=== PATIENT | female | born 1970 | race Caucasian/White ===

== ENCOUNTER → 2017-02-19 | Outpatient (CLI) | payer OTHER ==
[~2017-02-19] MED LIST: COLACE100 MG PO; CRESTOR10 MG PO; IBUPROFEN 200200 M1 PO; METAMUCIL1 EAC1 PO; PERCOCET PO; XANAX 0.5 MG0.5 MG PO; XARELTO10 MG PO; ZOLOFT50 MG PO; ZYRTEC10 M5 PO
== END ==
LOC: M.ULTRA 10:10
DX: N63.10 Unspecified lump in the right breast, unspecified quadrant (principal); N63.20 Unspecified lump in the left breast, unspecified quadrant

== ENCOUNTER → 2017-03-18 | Outpatient (CLI) | payer OTHER | LOC: M.MRI 11:30 | DX: N63.20 Unspecified lump in the left breast, unspecified quadrant (principal); N63.10 Unspecified lump in the right breast, unspecified quadrant ==

== ENCOUNTER → 2017-08-11 | Outpatient (CLI) | payer OTHER | LOC: M.RAD 16:36 | DX: M25.551 Pain in right hip (principal); M85.60 Other cyst of bone, unspecified site ==

== ENCOUNTER → 2017-09-07 | Outpatient (CLI) | payer OTHER | END | disposition home or self-care (01) | LOC: M.RAD 08-27 09:03 | DX: M25.551 Pain in right hip (principal); Z98.890 Other specified postprocedural states; Z90.710 Acquired absence of both cervix and uterus ==

== ENCOUNTER 2017-12-01 08:19 | Inpatient (IN) | payer OTHER ==
[2017-11-26 09:16] LABS: URINE BILIRUBIN NEGATIVE (Negative); URINE BLOOD 2+ (Negative); URINE CLARITY CLEAR; URINE COLOR YELLOW; URINE GLUCOSE-RANDOM NEGATIVE (Negative); URINE KETONES NEGATIVE (Negative); URINE LEUKOCYTES-REFLEX NEGATIVE (Negative); URINE NITRITE-REFLEX NEGATIVE (Negative); URINE PROTEIN NEGATIVE (Negative); URINE SPECIFIC GRAVITY <= 1.005 (1.005-1.030); URINE UROBILINOGEN 0.2 E.U./dl (0.2-1.0)
[2017-11-26 09:17] LABS: HEMATOCRIT 44.1 % (37.0-47.0); HEMOGLOBIN 14.9 gm/dL (12.0-15.0); MCH 31.8 pg (26.0-34.0); MCHC 33.8 g/dL (28.0-37.0); MPV 7.5 fl. (7.2-11.1); RBC 4.69 mil/uL (4.20-5.00); RDW-CV 13.3 % (10.5-14.5); WBC 10.3 thou/uL (4.0-11.0)
[2017-11-26 09:26] LABS: INR 0.9; PROTIME 9.6 Seconds (9.20-11.50)
[2017-11-26 09:27] LABS: BACTERIA-REFLEX 1-9 Few /HPF (None Seen); CASTS None Seen /LPF (None Seen); CRYSTALS None Seen /LPF (None Seen); MUCUS 0-3 Light strn/LPF (None Seen); SQUAMOUS 4-10 Moderate /LPF (0-3); URINE RBC 3-10 Few /HPF (0-2); URINE WBC-REFLEX 0-5 Rare /HPF (0-5)
[2017-11-26 09:53] LABS: CALCIUM 9.1 mg/dL (8.5-10.1); CREATININE 0.9 mg/dL (0.6-1.3); POTASSIUM 3.3 mmol/L (3.5-5.1); TOTAL BILIRUBIN 0.4 mg/dL (<0.1-1.0); TOTAL PROTEIN 7.7 g/dL (6.4-8.2)
[~2017-12-01] VITALS: Ht 170.2 cm; Wt 86.2 kg
[~2017-12-01 08:19] MED LIST changes: -COLACE100 MG PO; -METAMUCIL1 EAC1 PO; -PERCOCET PO; -XARELTO10 MG PO
[2017-12-01 10:35] VITALS: BP 129/71
[2017-12-01 17:37] VITALS: BP 110/70
--- NOTE | 2017-12-01 17:58 | NUR ---
PT ADMITTED TO UNIT AFTER RIGHT HIP REPLACEMENT. PT IS WBAT. HEMOVAC TO RIGHT HIP. INCISION TO RIGHT HIP IS COVERED WITH MEPILEX AND ICE PACKS FOR PAIN AND SWELLING. DEE HOSE AND SCD ON BILATERALLY. PT IS ON 2 LITERS 02 AND 24 HR CONTINUOS SPO2. PT HAS A LEFT FOREARM IV AND RIGHT FOREARM IV. RT FOREARM IV HAS 1/2 NS AT 75ML/HR. PT HAS 2+ PULSES. DIMINISHED LUNG SOUNDS. PT C/O PAIN 8/10. PT HAS RECEIVED FENTANYL, DILAUDID, OXY IR, AND HYDROCODONE. PT STILL C/O PAIN 8/10 WITH LITTLE RELIEF FROM MEDS. PT HAS BEEN TAUGHT RELAXATION TECHNIQUES TO CONTROL PAIN, WELL REPOSOTIONING. CALL LIGHT IN REACH. BED ALARM ON. WILL CONTINUE TO MONITOR. CALL LIGHT IS BROKEN, MAINTENANCE CALLED AND PT WILL BE MOVING ROOMS.
--- NOTE | 2017-12-01 18:19 | NUR ---
PT REMAINED ALERT AND ORIENTED. PT MOVED TO ROOM 106 DUE TO CALL LIGHT NOT WORKING AND MAINTENANCE SUGGESTION. PT C/O PAIN WITH LITTLE RELEIF FROM PAIN MEDS. HYDROCODONE AND OXY IR GIVEN FOR PAIN ON THIS FLOOR. PT DENIES ANY FURTHER NEEDS AT THIS TIME. CALL LIGHT IN REACH. BED ALARM ON. WILL CONTINUE TO MONITOR.
[2017-12-01 20:00] VITALS: BP 106/56
[2017-12-02] VITALS (8 sets, daily range): BP systolic 100–133; BP diastolic 52–68
[2017-12-02 04:02] LABS: HEMATOCRIT 36.7 % (37.0-47.0); HEMOGLOBIN 12.1 gm/dL (12.0-15.0); MCHC 33.1 g/dL (28.0-37.0); MCV 93.5 fL (80.0-100.0); MPV 7.8 fl. (7.2-11.1); RBC 3.92 mil/uL (4.20-5.00); RDW-CV 13.6 % (10.5-14.5); WBC 20.2 thou/uL (4.0-11.0)
--- NOTE | 2017-12-02 04:51 | NUR ---
PATIENT HAS REMAINED ALERT AND ORIENTED X 4 THROUGOUT THE SHIFT AND RESTING QUIETLY ON HOURLY ROUNDS. DOING WELL WITH PAIN MANAGEMENT, RECEIVING PAIN MEDICATION X 2 THIS SHIFT TO GOOD EFFECT. VITAL SIGNS STABLE ON O2 AT 2L/MIN. ASSIST WITH TURNS. ADEQUATE POST-OP VOIDS. NO NAUSEA. RIGHT HIP DRESSING CLEAN AND DRY WITH HEMOVAC PRESENT. CONTINUE TO MONITOR.
--- NOTE | 2017-12-02 12:15 | NUR ---
PT.IN RECLINER. MOM AND COUSIN AT BEDSIDE. PT.SAID THEY COULD STAY FOR CONVERSATION. SHE WAS ALERT AND ORIENTED. STATED SHE LIVES WITH HER S.O, ELMO. HE HAS TAKEN OFF THE REMAINDER OF THE WEEK AND WILL BE WITH HER AT HOME. SHE HAS A FRONT WHEEL WALKER AT BEDSIDE THAT IS HERS. SHE IS NORMALLY INDEPENDENT AT HOME AND USES NO DME. DISCUSSED HOME HEALTH VS.OUTPT.THERAPY. SHE PREFERES HOME HEALTH INITIALLY. SHE CHOSE [facility] . CM FAXED REFERRAL TO [facility] . CM CALLED IN [facility] TO PT.'S PHARMACY WRITTEN. PT.HAS HER APPT.AT OFFICE FOR DEC 16 AT 2:45PM.
[2017-12-02] MEDS ORDERED: PERCOCET PO (13:35)
[2017-12-02] MEDS ORDERED: XARELTO10 MG PO (13:36)
[2017-12-02] MEDS ORDERED: COLACE100 MG PO (13:37)
[2017-12-02] MEDS ORDERED: METAMUCIL1 EAC1 PO (13:40)
--- NOTE | 2017-12-02 16:00 | NUR ---
COPAY PER PHARMACY IS $35. [facility] CONFIRMED RECEIVING REFERRAL. FAX FINAL DISCHARGE ORDERS TO THEM AND CALL WHEN DISCHARGED. [facility]-FAX:[phone]/ PHONE:[phone]
--- NOTE | 2017-12-02 18:07 | NUR ---
PT REMAINED ALERT AND ORIENTED. PT HAS BEEN UP X1 ASSIST WITH WLAKER AND GAIT BELT TO RESTROOM. PT HAS WORKED WITH PT TODAY. PT HAS C/O PAIN BUT DENIED NEED FOR ANY PAIN MEDS AT THIS TIME. EXPLAINED TO PT TO USE CALL LIGHT WHEN FEELING NEED FOR PAIN MEDS. PT COMMUNICATED UNDERSTANDING WELL FAMILY PRESENT COMMUNICATED UNDERSTANDING. PT HAS SCD'S ON BILATERALLY, DEE HOSE. REINFORCED RT HIP DRESSING IT WAS STARTING TO COME OFF AT THE TOP RT CORNER. . REINFORCED WITH TEGADERM. PT TOOK OFF O2 BY THEMSELVES. SPO2 SAT WAS 100% ON RA. CALL LIGHT IN REACH. BED ALARM ON. HOURLY ROUNDING COMPLETED. WILL CONTINUE TO MONITOR.
[2017-12-03] VITALS: BP 126/52
--- NOTE | 2017-12-03 03:51 | NUR ---
O2 RE-APPLIED AT 2L/MIN FOR RA SAT POST NARCOTIC OF 89%. RE-CHECK 93%
[2017-12-03 04:00] VITALS: BP 115/55
[2017-12-03 04:15] LABS: HEMATOCRIT 32.5 % (37.0-47.0); HEMOGLOBIN 11.1 gm/dL (12.0-15.0)
--- NOTE | 2017-12-03 04:28 | NUR ---
PATIENT HAS REMAINED ALERT AND ORIENTED X 4 THROUGHOUT THE SHIFT AND RESTING QUIETLY ON HOURLY ROUNDS. UP WITH MIN ASSIST OF ONE WITH CUEING FOR HAND PLACEMENT, GAIT BELT AND WALKER TO BR. VOIDS ADEQUATE. MILK OF MAGNESIA AT HS. NO BM OVERNIGHT. DRESSING RIGHT HIP CLEAN AND DRY. REPORTED PAIN LEVELS 4-8/10 OVERNIGHT WITH PAIN MEDICATION Q3-4 HOURS. O2 RE-APPLIED IN PREVIOUS NOTE. VITAL SIGNS STABLE WITH LOW-GRADE TEMPERATURE. INCENTIVE SPIROMETER ENCOURAGED. CONTINUE TO MONITOR.
[2017-12-03 09:20] VITALS: BP 98/59
[2017-12-03 13:23] VITALS: BP 124/55
--- NOTE | 2017-12-03 14:23 | NUR ---
ASSUMED CARE OF PATIENT AFTER MORNING REPORT AT APPROX 0730. ALERT AND ORIENTED X4. ASSESSMENT COMPLETED AND CHARTED. VSS ON ROOM AIR. NO COMPLAINTS OF NAUSEA OR SOA. PAIN HAS BEEN MANAGED WITH MEDICATIONS. PATIENT WORKED WELL WITH THERAPIES TODAY. PATIENT DISCHARGED AT 1415 WITH ALL PERSONAL BELONGINGS, PRESCRIPTIONS AND DISCHARGE INFORAMTION.
--- NOTE | 2017-12-03 14:24 | NUR ---
REFRIGERATING OILER SPOKE TO INTAKE WITH [facility] TO INFORM OF THE PATIENT'S D/C AND FAXED PATIENT'S D/C ORDERS. [facility] TO CONTACT PATIENT TO SETUP VISIT. CM WILL REMAIN AVAILABLE TO ASSIST AND FOLLOW NEEDED.
--- NOTE | 2017-12-08 08:45 | OP ---
[address] [address] OPERATIVE REPORT Name: DOMINIC VIERA Room: [address] IN [facility]#: [id number] Admission: 12/01/17 Attend Phys: Randell Alaniz Discharge: 12/03/17 Date of : 66 Report #: [id number] THIS REPORT FOR: //name// CC: Cedrick Mckinnon DATE OF SERVICE: 12/01/2017 PREOPERATIVE DIAGNOSIS: Right hip osteoarthritis. POSTOPERATIVE DIAGNOSIS: Right hip osteoarthritis. PROCEDURE: Right total hip arthroplasty. SURGEON: Cedrick Harrison II, DO LEARNING DISABILITIES SPECIALIST: STEPHAN Henning ANESTHESIA: General endotracheal. ESTIMATED BLOOD LOSS: 250 mL. ANTIBIOTICS: Ancef preoperatively. DRAINS: Medium Hemovac. COMPLICATIONS: None. CONDITION: The patient stable to recovery room. IMPLANTS: Size 4 standard offset, 0 head and a 50 mm acetabular cup with metal liner. BRIEF HISTORY: The patient was seen in the preoperative area, preop P and H was performed. The patient's site was marked, questions were answered. Risks and benefits were discussed with the patient in detail about the surgery. The patient wished to proceed assuming all risks. The patient did state this leg was approximately 1.5 inches shorter and has been her entire life. She has questions of whether we will be able to get this back to the same length as the other side. This was answered with the possibility that if we got it back to the same length the other side, it may feel abnormal for her to walk; however, she should be able to proceed with gait training to have this performed. We will attempt to make every opportunity to get this back to the same length and the patient's understanding that she may have some slight discomfort due to it being different length than it was for most of her life. [place] [id number] OPERATIVE REPORT Name: VIERADOMINICGILDA AIKEN Room: [address]#: [id number] Admission: 12/01/17 Attend Phys: Randell Alaniz Discharge: 12/03/17 Date of : 66 Report #: [id number] understanding along with her and wished to proceed and would like to have this performed. OPERATIVE PROCEDURE: The patient was taken to the operative suite, placed supine on the operative table and given appropriate anesthesia. The patient's operative hip was placed in the [place] table leg rashid and sterilely prepped and draped in supine position. Surgery began by longitudinal incision over the anterior portion of the hip. This was down carried through subcutaneous tissues. A small bonnie was made in the tensor fascia. It was then split in line with its fibers and retracted laterally. An H capsulotomy was then performed and careful hemostasis was maintained with electrocautery and Aquamantys. The head and neck cutting alignment guide was then checked with fluoroscopic guidance. Appropriate cut was made to the head and neck and this was removed. Attention was turned to the acetabulum. Excess labrum was removed. It was then reamed in sequential fashion up to appropriate size. This showed excellent bleeding bone and excellent position on fluoroscopic guidance. The acetabular cup was then malleted into position and secured with cancellous screws. Metal liner was then applied. The patient's leg was then rotated and extended on [place] table leg rashid to expose the femur. It was then broached in sequential fashion up to the appropriate size. The appropriate neck was then trialed with appropriate head length and showed an excellent fit and fill and excellent stability of the hip throughout all range of motion. These trials were then removed. The final stem was malleted into position and the final neck and head were malleted in position. It was reduced in appropriate fashion, checked with C-arm for appropriate leg length and showed an excellent leg length throughout the exam without evidence of dislocation upon range of motion and shuck testing. The wound was then copiously irrigated. Hemostasis was obtained with electrocautery and Aquamantys. The pain cocktail was injected. PRP gel was sprayed throughout the internal aspect of the hip and the drain was activated. H capsulotomy was then closed utilizing #1 Vicryl in [id number] fashion. Tensor fascia was closed with #1 Vicryl in a running fashion. Skin was closed with 2-0 Vicryl and running 3-0 Monocryl. Dermabond and sterile dressing was applied. The patient transported to Recovery Room in stable condition. Counts were correct throughout the procedure. <ELECTRONICALLY SIGNED> By: Cedrick Harrison II, DO 12/08/17 0845 [id number] Harrison II, DO /nt
== END 2017-12-03 14:15 | disposition home health service (06) | DRG 470 ==
LOC: M.PRE 08:19 → M.ORTHSURG 09:58 → M.TBA 09:58 → M.PRE 09:59 → M.SUR 10:03 → EDSTATUS 10:04 → M.PRE 10:04 → M.ORTHSURG 15:56
PROVIDERS: Orthopaedic Surgery; ADMIT Internal Medicine
PROC: 0SR901Z Replacement of Right Hip Joint with Metal Synthetic Substitute, Open Approach (ICD-10-PCS; principal; 2017-12-01)
DX: M16.11 Unilateral primary osteoarthritis, right hip (principal); F41.9 Anxiety disorder, unspecified; E78.5 Hyperlipidemia, unspecified; F17.210 Nicotine dependence, cigarettes, uncomplicated; Z79.899 Other long term (current) drug therapy; Z90.710 Acquired absence of both cervix and uterus

== ENCOUNTER → 2018-03-15 | Outpatient (CLI) | payer OTHER ==
[~2018-03-15] MED LIST changes: +COLACE100 MG PO; +METAMUCIL1 EAC1 PO; +PERCOCET PO; +XARELTO10 MG PO
== END ==
LOC: M.MRI 11:12
DX: N63.20 Unspecified lump in the left breast, unspecified quadrant (principal); N63.10 Unspecified lump in the right breast, unspecified quadrant; R92.2 Inconclusive mammogram

== ENCOUNTER → 2019-08-08 | Outpatient (CLI) | payer OTHER | LOC: M.MRI 07-27 13:12 → M.RAD 13:39 | PROVIDERS: ATTEND Surgery | DX: N63.22 Unspecified lump in the left breast, upper inner quadrant (principal); N63.20 Unspecified lump in the left breast, unspecified quadrant; N63.10 Unspecified lump in the right breast, unspecified quadrant ==

== ENCOUNTER → 2020-02-10 | Outpatient (CLI) | payer OTHER | LOC: M.RAD 14:36 | PROVIDERS: ATTEND Surgery | DX: R92.2 Inconclusive mammogram (principal) ==

== ENCOUNTER → 2020-06-22 | Outpatient (CLI) | payer BC | LOC: M.MRI 08:23 | PROVIDERS: ATTEND Orthopaedic Surgery | DX: S83.241A Other tear of medial meniscus, current injury, right knee, initial encounter (principal); M25.461 Effusion, right knee; X58.XXXA Exposure to other specified factors, initial encounter; Y93.89 Activity, other specified; Y92.89 Other specified places as the place of occurrence of the external cause; Y99.8 Other external cause status ==

== ENCOUNTER → 2020-07-10 | Outpatient (CLI) | payer BC | LOC: M.LAB 16:31 | PROVIDERS: ATTEND Orthopaedic Surgery | DX: Z01.812 Encounter for preprocedural laboratory examination (principal); Z20.822 Contact with and (suspected) exposure to COVID-19 ==